=== PATIENT | male | born 1980 | race Caucasian/White ===

== ENCOUNTER 2022-05-16 14:34 | Emergency (ER) | payer OTHER ==
[~2022-05-16] VITALS: Ht 175.3 cm; Wt 79.4 kg
--- NOTE | 2022-05-16 14:59 | NUR ---
URINE SAMPLE COLECTED AND SENT TO LAB
[2022-05-16] MEDS ORDERED: CEFTRIAXONE 500 MG VIAL IM ONE (15:30)
[2022-05-16] MEDS ORDERED: DOXYCYCLINE HYCLATE (100 MG) 100 MG TABLET PO ONE (15:30)
[2022-05-16] MEDS ORDERED: CEFTRIAXONE 500 MG VIAL ONE (15:42)
[2022-05-16 15:43] LABS: BASOPHILS % (AUTO) 0.4 % (0.0-2.0); EOSINOPHILS % (AUTO) 1.6 % (0.0-6.0); HEMATOCRIT 43 % (39-51); HEMOGLOBIN 14.3 g/dL (13.5-17.5); LYMPHOCYTES # (AUTO) 2.3 K/uL (0.8-4.8); LYMPHOCYTES % (AUTO) 28.5 % (20.0-44.0); MEAN CORPUSCULAR HGB CONC 34 g/dl (31.0-36.0); MEAN CORPUSCULAR VOLUME 87 fL (80-96); MONOCYTES # (AUTO) 0.6 K/uL (0.1-1.30); MONOCYTES % (AUTO) 7.9 % (2.0-12.0); NEUTROPHILS % (AUTO) 61.6 % (43.0-81.0); PLATELET COUNT (AUTO) 302 K/uL (150-450); RED BLOOD CELL COUNT(AUTO) 4.88 MIL/uL (4.5-6.0); WHITE BLOOD COUNT (AUTO) 8.2 K/uL (4.3-11.0)
[2022-05-16] MEDS ORDERED: DOXYCYCLINE HYCLATE (100 MG) 100 MG TABLET ONE (15:43)
[2022-05-16] MEDS ORDERED: LIDOCAINE /MPF 1% VIAL 5 ML VIAL ONE (15:43)
--- NOTE | 2022-05-16 15:48 | NUR ---
[facility] WILSON AT BEDSIDE
[2022-05-16 15:58] LABS: CALCIUM, SERUM 8.7 mg/dL (8.5-10.1); CREATININE 0.8 mg/dL (0.6-1.3); POTASSIUM 4.1 mmol/L (3.5-5.1)
[2022-05-16 16:07] LABS: ALBUMIN 3.5 g/dL (3.4-5.0); BILIRUBIN,DIRECT 0.2 mg/dL (0.0-0.2); BILIRUBIN,TOTAL 0.7 mg/dL (0.2-1.0); TOTAL PROTEIN, SERUM 7.1 g/dL (6.4-8.2)
[2022-05-16 16:26] LABS: BILIRUBIN,URINE NEGATIVE (NEGATIVE); COLOR,URINE YELLOW (YELLOW); LEUKOCYTE ESTERASE ,URINE TRACE (NEGATIVE); NITRITE, URINE POSITIVE (NEGATIVE); PROTEIN,URINE NEGATIVE (NEGATIVE); UGLUCOSE NEGATIVE (NEGATIVE); UROBILINOGEN,URINE 0.2 EU/dL (0.2)
[2022-05-16 16:49] LABS: BACTERIA,URINE 3+ /HPF (None Seen); SQUAMOUS EPITHELIAL CELL,UR Few /HPF (None Seen); WBC,URINE 21-50 /HPF (0-3)
[2022-05-16] MEDS ORDERED: DOXY100C2 PO (16:49)
--- NOTE | 2022-05-16 17:02 | NUR ---
Patient discharged to home in stable condition. Written and verbal after care instructions given. Patient verbalizes understanding of instruction.
[2022-05-16 17:04] VITALS: BP 118/75
== END 2022-05-16 17:04 | disposition home or self-care (01) ==
LOC: EDUNIT# 14:34 → ER 14:38
DX: N45.1 Epididymitis (principal); N39.0 Urinary tract infection, site not specified
CPT/HCPCS: 99284; 74176; 86592; 86593; 96372; 76870; 85025; 80048; 87077; 87086; 83690; 80076; 87186; 81001; 36415; 85730; 87806; 87491; 87591; J0696; J3490

== ENCOUNTER 2025-06-15 16:11 | Emergency (ER) | payer OTHER ==
[~2025-06-15] VITALS: Ht 170.2 cm; Wt 68.0 kg
[~2025-06-15 16:11] MED LIST: DOXY100C2 PO
[2025-06-15 16:28] VITALS: TEMP 97.9
[2025-06-15] MEDS ORDERED: TDAP [DIPH/PERTUSSIS/TET] 0.5 ML VIAL IM ONE (16:59)
[2025-06-15] MEDS: TDAP [DIPH/PERTUSSIS/TET] 0.5 ML VIAL IM ONE (17:00)
[2025-06-15] MEDS: BACI/NEOM/POLY B OINT PKT 1 UDPKT PACKET TP ONE (17:26)
[2025-06-15] MEDS ORDERED: IBUP-1490 PO (17:38)
[2025-06-15 18:22] VITALS: BP 120/78; O2SAT 98
== END 2025-06-15 17:58 | disposition home or self-care (01) ==
LOC: ER 16:14
DX: M79.631 Pain in right forearm (principal); M25.532 Pain in left wrist; M25.531 Pain in right wrist; M79.632 Pain in left forearm; V43.52XA Car driver injured in collision with other type car in traffic accident, initial encounter; Y93.89 Activity, other specified; Y92.488 Other paved roadways as the place of occurrence of the external cause; Y99.8 Other external cause status
CPT/HCPCS: 73090-TC; 73130-TC; 90715